=== PATIENT | female | born 1990 | race Hispanic/Latino ===

== ENCOUNTER 2025-10-06 15:58 | Emergency (ER) | payer SELFPAY ==
[~2025-10-06] VITALS: Ht 160 cm; Wt 55.3 kg
--- NOTE | 2025-10-06 16:17 | ERN ---
ED Note History of Present Illness Stated Complaint: OTHER Chief Complaint: Other Problems Time Seen by MD: 16:00 Dictation: IN HIS A 35-YEAR-OLD FEMALE COMING IN TODAY WITH NEEDING HELP WITH HEROIN WITHDRAWAL. SHE STATES SHE LAST USED TWO DAYS AGO. SHE STATES SHE IS FEELING FLU-LIKE SYMPTOMS ANXIOUS WITH A RUNNY NOSE BODY ACHES. PRIMARY CARE DOCTOR. STATES HE SNORES HER HEROIN Allergies: Coded Allergies: doxycycline (Unverified Allergy, Unknown, HIVES, 10/06/25) Past Medical History Past Medical History: No Pertinent History Surgical History: None Social History: Smokers, Drugs, ETOH LMP: Oct 05, 2025 : 2 Aborts: 2 RN Note Reviewed/Agreed w/PFSH: Yes Review of System Dictation CONSTITUTIONAL: NEGATIVE EXCEPT FOR HPI HEAD/FACE: NEGATIVE EXCEPT FOR HPI EENT: NEGATIVE EXCEPT FOR HPI RESPIRATORY: NEGATIVE EXCEPT FOR HPI GASTROINTESTINAL/ABDOMINAL: NEGATIVE EXCEPT FOR HPI GENITOURINARY: NEGATIVE EXCEPT FOR HPI MUSCULOSKELETAL: NEGATIVE EXCEPT FOR HPI INTEGUMENTARY: NEGATIVE EXCEPT FOR HPI NEUROLOGICAL/PSYCH: NEGATIVE EXCEPT FOR HPI HEROIN ABUSE HEMATOLOGIC/LYMPHATIC: NEGATIVE EXCEPT FOR HPI ALL SYSTEMS NEGATIVE, EXCEPT NOTED ABOVE. 13 POINT REVIEW OF SYSTEMS ASSESSED AND ALL NEGATIVE EXCEPT FOR ABOVE. Initial Vital Sign VS Vital Signs Date Time Temp Pulse Resp B/P (MAP) Pulse Ox O2 Delivery O2 Flow Rate FiO2 10/06/25 16:00 97.5 92 19 126/78 98 Room Air 0 Physical Exam Dictation VITAL SIGNS REVIEWED GENERAL APPEARANCE: ALERT, ORIENTED X 3, NO ACUTE DISTRESS, WELL DEVELOPED, NOURISHED. HEAD AND FACE: NON-TRAUMATIC. EYES: PERRL, PINK CONJUNCTIVAS, EYELID NO TRAUMA, ANTERIOR CHAMBER WITH ARCUS SENILIS. EARS: PINNAS INTACT AND NO SIGNS OF TRAUMA OR ERYTHEMA EAR CANALS CLEAR AND NO DISCHARGE TM NO ERYTHEMA NOSE: NO DISCHARGE, NO BLEEDING. OROPHARYNX: MOUTH NORMAL, TONGUE PINK, PHARYNX CLEAR,NO ERYTHEMA, TONSILS NO EXUDATES, NO ABSCESSES NOTED, MUCOUS MEMBRANE MOIST NECK: SUPPLE, NON-TENDER, NO THYROMEGALY, NO MASSES, NO JVD, NO BRUITS BREAST:DEFERRED CHEST:NO TENDERNESS, NO CREPITUS, NO PARADOXICAL MOVEMENT, NO RETRACTIONS LUNGS:CLEAR, WELL-VENTILATED, SYMMETRIC, NO RALES, NO WHEEZING, NO RHONCHI, NO STRIDOR, GOOD BREATH SOUNDS BILATERALLY HEART: REGULAR RATE, REGULAR RHYTHM, NO MURMUR, NO GALLOPS VASCULAR: NO PERIPHERAL EDEMA, ABDOMEN: SOFT, POSITIVE BOWEL SOUNDS, NONDISTENDED, NO GUARDING, NONTENDER, NO REBOUND, NO MASSES NO HEPATOMEGALY, NO SPLENOMEGALY, NO JOSEPH'S SIGN, NO HERNIAS. RECTAL: DEFERRED GENITAL: DEFERRED NEUROLOGICAL: NORMAL SPEECH, MOTOR FUNCTION INTACT, SENSORY FUNCTION INTACT MUSCULOSKELETAL: NECK NONTENDER, FULL RANGE OF MOTION, BACK NONTENDER, FULL RANGE OF MOTION, EXTREMITIES: NONTENDER, FULL RANGE OF MOTION SKIN: COLOR PINK, DRY, NO TURGOR, NO RASH, NO LACERATIONS, NO ABRASIONS, NO CONTUSIONS. LYMPHATIC: DEFERRED Results (Laboratory/Radiology) Laboratory/Radiology Laboratory Tests Test 10/06/25 16:22 10/06/25 18:14 White Blood Count 8.0 K/uL (4.8-10.8) Red Blood Count 5.24 MIL/uL (4.00-5.50) Hemoglobin 14.6 g/dL (12.0-16.0) Hematocrit 44.0 % (36-48) Mean Corpuscular Volume 84.0 fL (79-99) Mean Corpuscular Hemoglobin 27.9 pg (27.0-33.0) Mean Corpuscular Hemoglobin Concent 33.2 g/dL (32.0-36.0) Red Cell Distribution Width 13.2 % (11.0-15.5) Platelet Count 249 K/uL (130-400) Mean Platelet Volume 10.5 fL (7.5-10.5) Immature Granulocyte % (Auto) 0.4 % (0-1) Neutrophils (%) (Auto) 82.7 % (40.0-77.0) H Lymphocytes (%) (Auto) 13.4 % (21.0-51.0) L Monocytes (%) (Auto) 3.1 % (3.0-13.0) Eosinophils (%) (Auto) 0.0 % (0.0-8.0) Basophils (%) (Auto) 0.4 % (0.0-5.0) Neutrophils # (Auto) 6.6 K/uL (1.8-7.7) Lymphocytes # (Auto) 1.1 K/uL (1.0-4.8) Monocytes # (Auto) 0.3 K/uL (0.1-1.0) Eosinophils # (Auto) 0.00 K/uL (0.00-0.70) Basophils # (Auto) 0.03 K/uL (0.00-0.20) Absolute Immature Granulocyte (auto 0.03 K/uL (0-1) Nucleated Red Blood Cells 0.0 % (0.0-0.19) Sodium Level 134 mmol/L (136-145) L Potassium Level 3.2 mmol/L (3.5-5.1) L Chloride Level 98 mmol/L (101-111) L Carbon Dioxide Level 28 mmol/L (21-32) Blood Urea Nitrogen 9 mg/dL (7-18) Creatinine 0.7 mg/dL (0.5-1.0) Glomerular Filtration Rate Calc 116 mL/min (>90) Random Glucose 118 mg/dL (70-105) H Total Calcium 9.0 mg/dL (8.5-10.1) Serum Test, Qualitative NEGATIVE (NEGATIVE) Salicylates Level < 2.8 mg/dL (2.8-20.0) L Acetaminophen Level < 1 mcg/mL (10-30) L Serum Alcohol < 3 mg/dL (0-10) Urine Color YELLOW (YELLOW) Urine Appearance TURBID (CLEAR) Urine pH 7.5 (5.0-8.0) Urine Specific [place] 1.024 (1.001-1.031) Urine Protein 10 mg/dL (NEGATIVE) H Urine Glucose (UA) NEGATIVE mg/dL (NEGATIVE) Urine Ketones 40 mg/dL (NEGATIVE) H Urine Occult Blood MODERATE (NEGATIVE) H Urine Nitrate NEGATIVE (NEGATIVE) Urine Bilirubin NEGATIVE mg/dL (NEGATIVE) Urine Urobilinogen 2.0 mg/dL (0.2-1.0) H Urine Leukocyte Esterase NEGATIVE Juhi/uL Urine RBC 2-5 /HPF (0-1) H Urine WBC 0-1 /HPF (0-1) Urine Squamous Epithelial Cells Rare /HPF (0-2) Urine Amorphous Crystals (Auto) Few /LPF (None Seen) H Urine Bacteria Few /HPF (None Seen) Urine Opiates Screen POSITIVE (NEGATIVE) H Urine Barbiturates Screen NEGATIVE (NEGATIVE) Urine Phencyclidine Screen NEGATIVE (NEGATIVE) Urine Amphetamines Screen NEGATIVE (NEGATIVE) Urine Benzodiazepines Screen NEGATIVE (NEGATIVE) Urine Cocaine Screen POSITIVE (NEGATIVE) H Urine Marijuana (THC) Screen NEGATIVE (NEGATIVE) Labs Reviewed?: Yes EKG Comment: [facility] Test Date: 2025-10-06 Test Time: 16:42:06 Pat Name: FRANK FROST Department: EDH Room: Gender: F 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 ED Course ED Course Orders Procedure Category Date Status Time Drug Screen Urine LAB 10/06/25 Complete 16:12 Cbc With Differential LAB 10/06/25 Complete 16:12 Alcohol, Blood LAB 10/06/25 Complete 16:12 Salicylate LAB 10/06/25 Complete 16:12 Acetaminophen LAB 10/06/25 Complete 16:12 Testing, LAB 10/06/25 Complete Serum Hcg 16:12 Urinalysis Profile LAB 10/06/25 Complete 16:12 12 Lead Ekg Tracing- EKG 10/06/25 Complete Technical 16:12 0.9%Nacl 1000ml (Ns PHA 10/06/25 In Process 1000ml) 16:30 Basic Metabolic Panel LAB 10/06/25 Complete 16:12 Potassium Bicarb/Cit PHA 10/06/25 Complete Ac 25meq (K-Lyte Ta 17:00 Current Medications Medications (Trade) Dose Ordered Sig/Sara Route PRN Reason Start Time Stop Time Status Last Admin Dose Admin Potassium Bicarbonate (K-Lyte Tablet Eff 25 Meq Tablet.eff) 25 meq ONCE ONCE PO 10/06/25 17:00 10/06/25 17:01 DC Sodium Chloride 1,000 ml @ 125 mls/hr ONCE ONCE IV 10/06/25 16:30 10/07/25 00:29 10/06/25 16:42 Vital Signs Date Time Temp Pulse Resp B/P (MAP) Pulse Ox O2 Delivery O2 Flow Rate FiO2 10/06/25 16:00 97.5 92 19 126/78 98 Room Air 0 1830/PATIENT REFUSED POTASSIUM REPLACEMENT SAYS I AM NOT GOING TO DRINK THAT SHIT. PATIENT IS HEMODYNAMICALLY STABLE THERE WAS NO TACHYCARDIA. SHE WILL BE DISCHARGED HOME WITH WARNING TO STOPPED HEROIN AND COCAINE. IN ADDITION SHE WILL BE PRESCRIBED CLONIDINE 0.1 MG B.I.D. FOR THE 10 DAYS HOLD IF BLOOD PRESSURE LESS THAN 90 SYSTOLIC. Medical Decision Making MDM MDM: DIFFERENTIAL DIAGNOSIS: HEROIN WITHDRAWAL/POLYDRUG ABUSE/ALCOHOL INTOXICATION/ELECTROLYTE IMBALANCE/DEHYDRATION RATIONALE: TESTS CONSIDERED AND ORDERED SECONDARY TO SHARED DECISION MAKING INCLUDE: LABS/EKG PREVIOUS OUTSIDE RECORDS REVIEWED: OLD ER VISITS. RISK OF COMPLICATION AND/OR MORBIDITY OR MORTALITY OF PATIENT MANAGEMENT: NONE MEDICATIONS-PER MEDICATION RECONCILIATION NEED FOR HOSPITALIZATION: PATIENT DOES NOT MEET CRITERIA FOR HOSPITALIZATION. NONE NEED FOR EMERGENCY MAJOR/MINOR SURGERY: NO THERE ARE NO SOCIAL CONCERNS WITH THIS PATIENT. POLYDRUG ABUSE HER TO INCLUDE HEROIN AND COCAINE PRESCRIPTION DRUG MANAGEMENT CLONIDINE 0.1 B.I.D., HOLD IF BLOOD PRESSURE LESS THAN 90/60 PRESCRIPTIONS WILL INCLUDE SYMPTOMATIC CARE PATIENT'S PRIOR EXTERNAL MEDICAL RECORDS FROM OTHER ER VISITS WERE REVIEWED BY ME INDICATED. PRIOR TESTING AND RESULTS FROM PREVIOUS VISITS WERE REVIEWED. PRIOR TESTS WERE TAKEN INTO ACCOUNT WITH MEDICAL DECISION MAKING AND RESOURCE UTILIZATION, INDEPENDENT HISTORIAN/HISTORIANS WERE USED TO OBTAIN COMPLETE MEDICAL HISTORY. I INDEPENDENTLY INTERPRETED THE TEST THAT WERE PERFORMED, RESULTS WERE REVIEWED BY ME AND CONSIDERED FINDINGS ON RADIOLOGY IF ORDERED. MEDICAL MANAGEMENT AND EXAMINATION INTERPRETATION DISCUSSIONS WERE HAD BY ME WITH OTHER QUALIFIED HEALTHCARE PROFESSIONALS INDICATED FOR THE PATIENT'S CARE. DX & DISP Disposition: Discharge Departure Impression: Primary Impression: Mild heroin abuse Additional Impressions: Cocaine abuse, Hypokalemia, Mild dehydration, Hyperglycemia Condition: Stable Scripts Clonidine HCl (Clonidine HCl) 0.1 Mg Tablet 0.1 MG PO BID for 10 Days, #20 TAB HOLD DOSE IF BLOOD PRESSURE IS LESS THAN 90/60 Prov: ARMINDA CARMONA [facility] 10/06/25 Additional Instructions: FOLLOW-UP WITH PRIMARY CARE PROVIDER IN 1 TO 2 DAYS. TAKE MEDICATIONS DIRECTED HERE IN THE EMERGENCY ROOM. OKAY TO CONTINUE HOME MEDICATIONS UNLESS OTHERWISE DISCUSSED DURING YOUR VISIT IN THE EMERGENCY ROOM TODAY. RETURN TO YOUR NEAREST EMERGENCY ROOM IF SYMPTOMS WORSEN OR IF THERE IS NO IMPROVEMENT. CALL 911 IF YOU NEED IMMEDIATE ASSISTANCE. TAKE TYLENOL OR MOTRIN [id number] NEEDED AND IF NO CONTRAINDICATIONS ARE PRESENT. INCREASE ORAL HYDRATION. A WOUND CULTURE OR URINE CULTURE WAS ORDERED HERE IN THE EMERGENCY ROOM DEPARTMENT PLEASE FOLLOW-UP WITH PRIMARY CARE PROVIDER AND ADVISE THEM TO GET REPEAT PORTS FROM OUR FACILITY. IF YOU HAD ANY MITCH WRAP/SPLINTS THAT WERE APPLIED HERE, PLEASE DO NOT REMOVE THEM UNTIL YOU SEE YOUR PRIMARY CARE OR SPECIALTY. TAKE CLONIDINE DIRECTED FOR SYMPTOMS OF HEROIN WITHDRAWAL TO INCLUDE TACHYCARDIA SWEATING NAUSEA. HOLD CLONIDINE IF YOUR BLOOD PRESSURE IS LESS THAN 90/60 STOP COCAINE USE OR RISK HEART ATTACK, STROKE OR INSTANT DUE TO COCAINE HAS BEEN MIXED WITH FENTANYL SUGGEST SIPS OF GATORADE OR POWERADE EVERY 15 MINUTES WHILE AWAKE FOR THE NEXT 24 HOURS. SEE YOUR PRIMARY CARE DOCTOR FOR FOLLOW UP Time of Disposition: 18:45 I have reviewed the case, and I agree with, Diagnosis and Plan ARMINDA CARMONAP Oct 06, 2025 16:17
[2025-10-06 16:33] LABS: IMMATURE GRANULOCYTE ABSOLUTE 0.03 K/uL (0-1); NUCLEATED RED BLOOD CELLS 0.0 % (0.0-0.19); PLATELET COUNT (AUTO) 249 K/uL (130-400); RED BLOOD CELL COUNT(AUTO) 5.24 MIL/uL (4.00-5.50); RED CELL DISTRIBUTION WIDTH 13.2 % (11.0-15.5); WHITE BLOOD COUNT (AUTO) 8.0 K/uL (4.8-10.8)
[2025-10-06 16:42] LABS: CREATININE 0.7 mg/dL (0.5-1.0); GLOMERULAR FILTR. RATE CALC 116 mL/min (>90); GLUCOSE,RANDOM 118 mg/dL (70-105); SODIUM SERUM 134 mmol/L (136-145); UREA NITROGEN, BLOOD 9 mg/dL (7-18)
[2025-10-06] MEDS: 0.9%NACL 1000ML 1,000 ML IV ONE (16:42)
--- NOTE | 2025-10-06 16:50 | EKG ---
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
[2025-10-06 16:53] LABS: ALCOHOL, BLOOD < 3 mg/dL (0-10)
--- NOTE | 2025-10-06 18:25 | NUR ---
ATTEMPTED TO GIVEN ADMISISTER KLYTE MEDICATION PT REFUSED, PT STATED IT WOULD MAKE HER THROW UP. NOTIFIED ARMINDA TORRES.
[2025-10-06 18:26] LABS: APPEARANCE,URINE TURBID (CLEAR); GLUCOSE, URINE (UA) NEGATIVE (NEGATIVE); LEUKOCYTE ESTERASE ,URINE NEGATIVE Leu/uL (NEGATIVE); NITRATE,URINE NEGATIVE (NEGATIVE); OCCULT BLOOD,URINE MODERATE (NEGATIVE)
[2025-10-06 18:27] LABS: ADD UA MICROSCOPIC YES
[2025-10-06 18:30] LABS: AMPHET/METH SCREEN,URINE NEGATIVE (NEGATIVE); BARBITURATE SCREEN, URINE NEGATIVE (NEGATIVE); CANNABINOID SCREEN,URINE NEGATIVE (NEGATIVE); COCAINE SCREEN,URINE POSITIVE (NEGATIVE)
[2025-10-06 18:34] LABS: SQUAMOUS EPITHELIAL CELL,UR Rare /HPF (0-2)
[2025-10-06 18:40] VITALS: BP 124/85; PULSE 61; RESP 22; TEMP 98.7; O2SAT 97
[2025-10-06] MEDS ORDERED: CLON0.1T PO (18:46)
== END 2025-10-06 19:16 | disposition home or self-care (01) ==
LOC: EDH 15:58
DX: F11.10 Opioid abuse, uncomplicated (principal); F14.10 Cocaine abuse, uncomplicated; E86.0 Dehydration; E87.6 Hypokalemia; R73.9 Hyperglycemia, unspecified; F17.200 Nicotine dependence, unspecified, uncomplicated; Z88.1 Allergy status to other antibiotic agents
CPT/HCPCS: 99284; 96360; 96361; 80048; 80305; 84703; 85025; 36415; 93005; 81001; G0481; J7030